=== PATIENT | female | born 1955 | race Caucasian/White ===

== ENCOUNTER 2018-11-21 13:57 | Emergency (ER) | payer MEDICARE, OTHER ==
[~2018-11-21] VITALS: Ht 157.5 cm; Wt 90.0 kg
[~2018-11-21 13:57] MED LIST: ASA; BENAZEPRIL HCL; IBUPROFEN; LASIX; LEVOTHYROXINE; METOPROLOL; OYSCO; RANITIDINE
[2018-11-21 14:02] VITALS: Ht 157.5 cm; Wt 90.0 kg
--- NOTE | 2018-11-21 14:17 | ERD ---
ER Documentation Chief Complaint Chief Complaint right arm pain, right knee and left ankle pain s/p slip and fall HPI 63-year-old female, presents to the emergency department, complaining of right upper extremity pain, right knee pain and left ankle pain after a mechanical fall that occurred approximately 1 hour prior to arrival, the patient slipped and fell over the right side of her body. No head trauma, no loss of consciousness. Patient able to ambulate. No medications taken today. ROS All systems reviewed and are negative except as per history of present illness. Medications Home Meds Active Scripts Ibuprofen* (Ibuprofen*) 600 Mg Tablet, 600 MG PO Q8, #12 TAB Prov:MILKA NAIR MD 11/21/18 Reported Medications [Levothyroxine] No Conflict Check 09/06/10 [Metoprolol] No Conflict Check 09/06/10 [Oysco ] No Conflict Check 09/06/10 [Benazepril Hcl ] No Conflict Check 09/06/10 [Asa ] No Conflict Check 09/06/10 [Ranitidine] No Conflict Check 09/06/10 [Lasix] No Conflict Check 09/06/10 [Ibuprofen] No Conflict Check 09/06/10 Allergies Allergies: Coded Allergies: tramadol (Verified Allergy, Mild, 09/06/10) egg (Verified Allergy, Unknown, 11/21/18) FmHx Family History: No diabetes, No coronary disease Physical Exam Vitals Vital Signs Date Temp Pulse Resp B/P (MAP) Pulse Ox O2 O2 Flow FiO2 Time Delivery Rate 11/21/18 97.8 88 16 190/86 98 14:02 (120) 11/21/18 97.9 72 18 190/86 98 14:01 (120) Physical Exam Const: No acute distress Head: Atraumatic Eyes: Normal Conjunctiva ENT: Normal External Ears, Nose and Mouth. Neck: Full range of motion. No meningismus. Resp: Clear to auscultation bilaterally Cardio: Regular rate and rhythm, no murmurs Abd: Soft, non tender, non distended. Normal bowel sounds Skin: No petechiae or rashes Back: No midline or flank tenderness Ext: Tenderness to palpation of the right elbow, right knee and left ankle, however, no gross deformity, no crepitus, full passive range of motion. Distal neurovascular exam intact in all extremities. Neur: Awake and alert Psych: Normal Mood and Affect Results 24 hrs Current Medications Medications Dose Sig/Lester Start Time Status Last (Trade) Ordered Route PRN Stop Time Admin Dose Reason Admin 2 tab ONCE ONCE 11/21/18 DC 11/21/18 Acetaminophen PO 14:30 14:36 / 11/21/18 14:34 Hydrocodone Bitart ([place] (5/325)) Ibuprofen 600 mg ONCE ONCE 11/21/18 DC 11/21/18 (Motrin) PO 14:30 14:36 11/21/18 14:31 Procedures/MDM Differential diagnosis include but not limited to: Soft tissue contusion, sprain/strain, muscle spasm, fracture. Neurovascular exam grossly intact. no clinical findings suggestive of fracture, no acute deformity, no edema, no rashes. Physical examination and clinical presentation consistent most likely with mechanical fall, with multiple soft tissue contusions. No fractures. During the ED course the patient remained stable, without complaints. Results and clinical impression discussed with patient who agrees with management. The patient is stable to be treated outpatient and will be d ischarged home with recommendations and close monitoring The patient was instructed to follow up with the primary care provider in the next 48h. If symptoms persist, worsen or new symptoms develop, then patient should return to the ED immediately. Instructions explained and given to patient with acknowledgment and demonstrated understanding. Disclaimer: Inadvertent spelling and grammatical errors are likely due to EHR/dictation software use and do not reflect on the overall quality of patient care. Also, please note that the electronic time recorded on this note does not necessarily reflect the actual time of the patient encounter. Departure Diagnosis: Primary Impression: Fall from slip, trip, or stumble Additional Impressions: Sprain of left ankle Contusion of right knee, initial encounter Contusion of right elbow, initial encounter Condition: Stable Additional Instructions: Thank you very much for allowing us to participate in your care. Your health and safety is our top priority at [facility]. Call your primary care doctor TOMORROW for an appointment during the next 2-4 days and bring all the information and medications prescribed. Have prescriptions filled and follow precisely the directions on the label. If the symptoms get worse and your provider is unavailable, return to the Emergency Department immediately. MILKA NAIR MD Nov 21, 2018 14:17
[2018-11-21] MEDS ORDERED: HYDROCODONE/APAP (5/325) TAB PO ONE (14:30)
[2018-11-21] MEDS ORDERED: IBUPROFEN 600 MG TAB PO ONE (14:30)
[2018-11-21] MEDS ORDERED: IBUP-1542 PO (16:18)
[2018-11-21 16:43] VITALS: BP 179/75; PULSE 67; RESP 18
== END 2018-11-21 16:44 | disposition home or self-care (01) ==
LOC: FTE 13:57
DX: S93.402A Sprain of unspecified ligament of left ankle, initial encounter (principal); S80.01XA Contusion of right knee, initial encounter; S50.01XA Contusion of right elbow, initial encounter; W01.0XXA Fall on same level from slipping, tripping and stumbling without subsequent striking against object, initial encounter; Y92.9 Unspecified place or not applicable
CPT/HCPCS: 73562; 73610